=== PATIENT | male | born 1980 | race Caucasian/White ===

== ENCOUNTER 2017-03-06 19:43 | Emergency (ER) | payer OTHER ==
[2017-03-06] MEDS ORDERED: NS 0.9% 1000 ML* 1,000 ML ONE (19:48)
[2017-03-06 20:14] VITALS: BP 121/79
[2017-03-06] MEDS ORDERED: Fluorescein Sodium TOPICAL* 1 MG TEST OPHTHALMIC ONE (20:35)
--- NOTE | 2017-03-06 20:38 | UC ---
Eye Complaint HPI - HPI Summary HPI Summary: Splashed carburator fluid into R eye this evening, flushed at home with tap water. Eye is irritated, denies acute pain or visual changes. - History of Current Complaint Stated Complaint: CARBERATOR FLUID IN EYE Time Seen by Provider: 03/06/17 19:48 Hx Obtained From: Patient Onset/Duration: Sudden Onset Timing: Constant Severity Initially: Moderate Severity Currently: Mild Location of Injury: Conjunctiva Character: Dull, Foreign Body Sensation Aggravating Factor(s): Light Alleviating Factor(s): Other - flushing Associated Signs And Symptoms: Positive: Drainage (Clear) - Risk Factors Penetrating Injury Risk Factor: Negative Globe Rupture Risk Factors: Negative Acute Glaucoma Risk Factors: Negative - Allergies/Home Medications Allergies/Adverse Reactions: Allergies Allergy/AdvReac Type Severity Reaction Status Date / Time No Known Allergies Allergy Verified 03/06/17 20:14 PMH/Surg Hx/FS Hx/Imm Hx Endocrine History Of: Denies: Diabetes, Thyroid Disease Cardiovascular History Of: Denies: Cardiac Disorders, Hypertension Respiratory History Of: Denies: COPD, Asthma GI/ History Of: Denies: Ulcer - Surgical History Surgical History: Yes Surgery Procedure, Year, and Place: vasectomy, pilonidial cyst - Family History Known Family History: Negative: Blood Disorder - Social History Lives: With Family Alcohol Use: Weekly Substance Use Type: None Smoking Status (MU): Never Smoked Tobacco Review of Systems Constitutional: Negative Skin: Negative Eyes: Eye Redness, Photophobia - mild ENT: Negative Respiratory: Negative Cardiovascular: Negative Gastrointestinal: Negative Genitourinary: Negative Motor: Negative Neurovascular: Negative Musculoskeletal: Negative Neurological: Negative Psychological: Negative All Other Systems Reviewed And Are Negative: Yes Physical Exam Triage Information Reviewed: Yes Appearance: Well-Appearing, Well-Nourished Vital Signs: Initial Vital Signs Temp 97.5 F 03/06/17 20:09 Pulse 53 03/06/17 20:09 Resp 16 03/06/17 20:09 BP 121/79 03/06/17 20:09 Pulse Ox 97 03/06/17 20:09 Eye Exam: Other - PERRL Eyes: Positive: Conjunctiva Inflamed - R, Other: - fluorescein dye test negative for uptake. No photophobia. ENT Exam: Normal ENT: Positive: Normal ENT inspection, Hearing grossly normal, Pharynx normal, TMs normal Dental Exam: Normal Neck exam: Normal Neck: Positive: Supple, Nontender, No Lymphadenopathy Respiratory Exam: Normal Respiratory: Positive: Chest non-tender, Lungs clear, Normal breath sounds, No respiratory distress, No accessory muscle use Cardiovascular Exam: Normal Cardiovascular: Positive: RRR, No Murmur Musculoskeletal Exam: Normal Neurological Exam: Normal Neurological: Positive: Alert Psychological Exam: Normal Skin Exam: Normal Eye Complaint Course/Dx - Differential Dx/Diagnosis Provider Diagnoses: R eye chemical conjunctivitis Discharge - Discharge Plan Condition: Stable Disposition: HOME Patient Education Materials: [facility] (ED) Referrals: Andres Smith MD [Medical Doctor] - 2 Days Emre Platt DO [Primary Care Provider] - 2 Weeks Additional Instructions: Your eye showed no signs of injury aside from mild irritation. If you are not completely back to normal by Saturday, or if you have new pain, trouble with your vision, or worsening symptoms, please see Dr. Smith's office for follow-up.
== END 2017-03-06 20:55 | disposition home or self-care (01) ==
LOC: UCEAST 19:43
DX: H10.211 Acute toxic conjunctivitis, right eye (principal); T50.995A Adverse effect of other drugs, medicaments and biological substances, initial encounter; Y92.9 Unspecified place or not applicable
CPT/HCPCS: 99212; A9270-GY; G0463

== ENCOUNTER 2017-04-23 16:11 | Emergency (ER) | payer OTHER ==
[2017-04-23 16:18] VITALS: BP 110/75
--- NOTE | 2017-04-23 18:48 | UC ---
General HPI - HPI Summary HPI Summary: 48 HOURS OF FEVER CHILLS BODY ACHES. NO COUGH. NO SORE THROAT. NO ABDOMINAL PAIN. NO CONSTIPATION OR DIARRHEA. NO KNOWN EXPOSURE. NO RASHES. NO RECENT TICK BITES. NO TRAUMA. NO CHEST PAIN OR SHORTNESS OF BREATH. MILD HEADACHE CONTROLLED WITH TYLENOL. NO NECK STIFFNESS. NO PHOTOPHOBIA. - History of Current Complaint Chief Complaint: UCGeneralIllness Stated Complaint: FEVER AND HEADACHE Time Seen by Provider: 04/23/17 17:37 Hx Obtained From: Patient Onset/Duration: Gradual Onset, Lasting Days, Still Present Timing: Constant Onset Severity: Mild Current Severity: Mild Associated Signs & Symptoms: Positive: Fever, Headache. Negative: Confusion, Cough, Chest Pain, Diarrhea, Dysuria, Decreased Oral Intake, Edema, Melena, Nausea, Palpitations, Recent Medication Changes, Syncope, SOB, Trauma, Vomiting , Wheezing, Weakness - Allergy/Home Medications Allergies/Adverse Reactions: Allergies Allergy/AdvReac Type Severity Reaction Status Date / Time No Known Allergies Allergy Verified 03/06/17 20:14 Home Medications: Home Medications Acetaminophen [Tylenol] 325 mg PO 04/23/17 [History] PMH/Surg Hx/FS Hx/Imm Hx Previously Healthy: Yes - Surgical History Surgical History: Yes Surgery Procedure, Year, and Place: vasectomy, pilonidial cyst - Family History Known Family History: Negative: Blood Disorder - Social History Occupation: Employed Full-time Lives: With Family Alcohol Use: Weekly Substance Use Type: None Smoking Status (MU): Never Smoked Tobacco Review of Systems Constitutional: Fever, Chills, Fatigue Skin: Negative Eyes: Negative ENT: Negative Respiratory: Negative Cardiovascular: Negative Gastrointestinal: Negative Genitourinary: Negative Motor: Negative Neurovascular: Negative Musculoskeletal: Negative Neurological: Negative Psychological: Negative All Other Systems Reviewed And Are Negative: Yes Physical Exam Triage Information Reviewed: Yes Appearance: No Pain Distress, Well-Nourished, Ill-Appearing - MILDLY Vital Signs: Initial Vital Signs Temp 98.1 F 04/23/17 16:14 Pulse 83 04/23/17 16:14 Resp 16 04/23/17 16:14 BP 110/75 04/23/17 16:14 Pulse Ox 99 04/23/17 16:14 Vital Signs Reviewed: Yes Eye Exam: Normal ENT Exam: Normal ENT: Positive: Normal ENT inspection, Hearing grossly normal, TMs normal Dental Exam: Normal Neck exam: Normal Neck: Positive: Supple, Nontender, No Lymphadenopathy Respiratory Exam: Normal Respiratory: Positive: Chest non-tender, Lungs clear, Normal breath sounds, No respiratory distress, No accessory muscle use Cardiovascular Exam: Normal Cardiovascular: Positive: RRR, No Murmur, Pulses Normal, Brisk Capillary Refill Abdominal Exam: Normal Abdomen Description: Positive: Nontender, No Organomegaly, Soft. Negative: CVA Tenderness (R), CVA Tenderness (L) Musculoskeletal Exam: Normal Musculoskeletal: Positive: Strength Intact, ROM Intact, No Edema Neurological Exam: Normal Psychological Exam: Normal Psychological: Positive: Normal Response To Family Skin Exam: Normal Course/Dx - Course Course Of Treatment: PATIENT ADVISED TO SEEK IMMEDIATE EVALUATION IF SYMPTOMS WORSEN OR IF NEW SYMPTOMS DVELOP. - Differential Dx - Multi-Symptom Differential Diagnoses: Metabolic Abnormality, Sepsis, Urinary Tract Infection, Other Provider Diagnoses: VIRAL SYNDROME Discharge - Discharge Plan Condition: Stable Disposition: HOME Patient Education Materials: Viral Syndrome (ED) Forms: *Work Release Referrals: Emre Platt DO [Primary Care Provider] -
== END 2017-04-23 19:03 | disposition home or self-care (01) ==
LOC: UCEAST 16:11
DX: B34.9 Viral infection, unspecified (principal)
CPT/HCPCS: 81003; 99211; G0463